=== PATIENT | male | born 2000 | race Caucasian/White ===

== ENCOUNTER 2022-02-02 14:05 | Outpatient (CLI) | payer BC | END 2022-02-02 14:06 | disposition home or self-care (01) | LOC: BICULT 14:05 | PROVIDERS: ATTEND Urology | DX: N13.30 Unspecified hydronephrosis (principal); R31.29 Other microscopic hematuria | CPT/HCPCS: 76770 ==

== ENCOUNTER 2022-02-14 14:03 | Outpatient (CLI) | payer BC | END 2022-02-14 14:04 | disposition home or self-care (01) | LOC: BICCT 14:03 | PROVIDERS: ATTEND Urology | DX: N13.30 Unspecified hydronephrosis (principal) | CPT/HCPCS: 74178 ==

== ENCOUNTER 2022-03-16 10:41 | Outpatient (CLI) | payer BC ==
[2022-03-16 11:50] LABS: Hemoglobin 15.5 g/dL (13.5-17.5); Mean Corpuscular HGB CONC 34.1 g/dL (32.0-36.0); Mean Corpuscular Hemoglobin 29.5 pg (27.0-33.0); Mean Corpuscular Volume 86.5 fl (81.2-95.1); Mean Platelet Volume 10.2 fl (7.4-10.4); Platelet Count 242 10x3/uL (150-450); RBC Distribution Width 12.6 % (11.5-14.5); Red Blood Cell (RBC) Count 5.26 10x6/uL (4.32-5.72); White Blood Cell (WBC) Count 6.2 10x3/uL (3.5-10.5)
[2022-03-16 11:51] LABS: Bilirubin Neg (Negative); Blood, Urine Negative (Negative); Clarity Clear (Clear); Glucose, Urine (Dipstick) Normal (Negative); Ketone, Urine Negative (Negative); Leukocyte Negative (Negative); Nitrite Negative (Negative); Protein, Urine (Dipstick) 15 mg/dl (Neg-Trace)
[2022-03-16 12:00] LABS: Bacteria/HPF None Seen HPF (None Seen); RBC/HPF 0-3 HPF (0-3); Squamous Epithelial 0-3 HPF (0-3); WBC/HPF 0-3 HPF (0-3)
[2022-03-16 12:06] LABS: Anion Gap 15 mmol/L (10-20); BUN (Urea Nitrogen) 8 mg/dL (8.9-20.6); Calc. Creatinine Clearance 0 mL/min (70-130); Calcium 9.8 mg/dL (7.8-10.44); Carbon Dioxide 25 mmol/L (22-29); Chloride 104 mmol/L (98-107); Estimated GFR 111; Glucose 79 mg/dL (70-105); Potassium 4.4 mmol/L (3.5-5.1); Sodium 140 mmol/L (136-145)
== END 2022-03-16 10:42 | disposition home or self-care (01) ==
LOC: LABBT 10:41
PROVIDERS: ATTEND Urology
DX: Z01.812 Encounter for preprocedural laboratory examination (principal); N13.0 Hydronephrosis with ureteropelvic junction obstruction; N45.3 Epididymo-orchitis; Z20.822 Contact with and (suspected) exposure to COVID-19
CPT/HCPCS: 80048; 81001; 85027; 85610; 85730; 87086; 87811

== ENCOUNTER 2022-03-21 07:39 | Day surgery (SDC) | payer BC ==
[2022-03-16 10:27] VITALS: BMI 21.9
[2022-03-21] MEDS ORDERED: Iopamidol 30 ML ONE (10:41)
[2022-03-21] MEDS ORDERED: Midazolam HCl 2 mg/2 ml Vial ONE (10:43)
[2022-03-21] MEDS ORDERED: Fentanyl 100 MCG/2 ML VIAL ONE (10:43)
[2022-03-21] MEDS ORDERED: HYDROmorphone 0.5 MG/0.5 ML SYRINGE ONE (10:44)
[2022-03-21] MEDS ORDERED: Levofloxacin 500 mg/D5W 100 ml Premix Bag ONE (10:51)
[2022-03-21] MEDS ORDERED: Lidocaine 1% PF 5 ML VIAL ONE (10:56)
[2022-03-21] MEDS ORDERED: Dexamethasone 20 MG/5 ML VIAL ONE (10:56)
[2022-03-21] MEDS ORDERED: PROPOFOL 200 MG/20 ML VIAL ONE (10:56)
[2022-03-21] MEDS ORDERED: Ondansetron PF 4 MG/2 ML Vial ONE (10:56)
[2022-03-21] MEDS ORDERED: Phenazopyridine HCl 100 MG TAB ONE ×2 (12:16)
[2022-03-21] MEDS ORDERED: Oxybutynin 5 MG TAB ONE (12:17)
[2022-03-21] MEDS ORDERED: HYDROcodone/Acetaminophen 5/325 mg Tablet ONE (14:41)
== END 2022-03-21 14:48 | disposition home or self-care (01) ==
LOC: SDC 07:39
PROVIDERS: ATTEND Urology
PROC: 0T768DZ Dilation of Right Ureter with Intraluminal Device, Via Natural or Artificial Opening Endoscopic (ICD-10-PCS; principal; 2022-03-21)
DX: N13.30 Unspecified hydronephrosis (principal); N45.3 Epididymo-orchitis; N13.5 Crossing vessel and stricture of ureter without hydronephrosis; N13.8 Other obstructive and reflux uropathy; A56.19 Other chlamydial genitourinary infection
CPT/HCPCS: 74420; C2617; J1100; J1170; J1956; J2250; J2405; J2704; J3010; Q9967

== ENCOUNTER 2022-04-03 12:25 | Outpatient (CLI) | payer BC | END 2022-04-03 12:26 | disposition home or self-care (01) | LOC: NM 12:25 | PROVIDERS: ATTEND Urology | DX: N13.1 Hydronephrosis with ureteral stricture, not elsewhere classified (principal) | CPT/HCPCS: 78708; A4641; A9562 ==

== ENCOUNTER 2022-06-01 08:58 | Outpatient (CLI) | payer BC ==
[2022-06-01] MEDS ORDERED: Furosemide 40 MG/4 ML VIAL ONE (12:00)
== END 2022-06-01 08:59 | disposition home or self-care (01) ==
LOC: NM 08:58
PROVIDERS: ATTEND Urology
DX: N13.1 Hydronephrosis with ureteral stricture, not elsewhere classified (principal)
CPT/HCPCS: 78708; A4641; A9562; J1940